=== PATIENT | female | born 1955 | race Caucasian/White ===

== ENCOUNTER → 2023-11-15 01:58 | Outpatient (CLI) | payer MEDICARE, SELFPAY ==
--- NOTE | 2023-11-15 06:30 | DI.US_ITS ---
Exam(s) US LOWER EXTREMITY VENOUS LT EXAM: US LOWER EXTREMITY VENOUS LT CLINICAL HISTORY: Left popliteal pain,swelling lt lower ext,m79.89 TECHNIQUE: Grayscale, color, and doppler imaging of the deep venous system of the left lower extremi ty was performed. COMPARISON: No exams were available for comparison FINDINGS: There is no evidence of intraluminal thrombus and there is normal compression and augmentation demons trated within the common femoral vein, femoral vein, and popliteal vein. In the ipsilateral calf the interrogated veins also exhibit normal compression/ augmentation properti es. The ipsilateral saphenofemoral junction is patent. IMPRESSION: 1. No evidence of DVT in the left lower extremity. DATA REPOSITORY:
== END ==
PROVIDERS: PCP Nurse Practitioner Family; Visit Provider Nurse Practitioner Family
DX: M79.662 Pain in left lower leg; M79.89 Other specified soft tissue disorders
CPT/HCPCS: 93971

== ENCOUNTER 2023-11-15 08:04 | Outpatient (CLI) | payer MEDICARE, SELFPAY ==
[2023-11-15 08:22] LABS: Anion Gap 6.9 mmol/L (3-11); BUN 22 mg/dL (7-18); CO2 30.1 mmol/L (21.0-32.0); CREATININE 0.8 mg/dL (0.55-1.02); Calculated LDL 168 mg/dL (<100); Chloride 108 mmol/L (98-107); Cholesterol 243 mg/dL (<200); Estimated GFR 80.71 (mL/min/1.73m2); Glucose 117 mg/dL (74-106); HDL Cholesterol 53 mg/dL (40-60); Potassium 4.1 mmol/L (3.5-5.1); Sodium 145 mmol/L (136-145); Triglyceride 112 mg/dL (<150)
[2023-11-15 08:55] LABS: Hemoglobin A1C 6.3 % (<5.7)
== END 2023-11-15 08:05 | disposition home or self-care (01) ==
LOC: LBO 08:05
PROVIDERS: PCP Nurse Practitioner Family; Visit Provider Nurse Practitioner Family
DX: E78.5 Hyperlipidemia, unspecified (principal); R73.03 Prediabetes; L40.50 Arthropathic psoriasis, unspecified
CPT/HCPCS: 36415; 80048; 80061; 83036; 93971